=== PATIENT | female | born 1970 | race Caucasian/White ===

== ENCOUNTER → 2021-12-20 | Outpatient (CLI) | payer OTHER ==
[~2021-12-20] MED LIST: DULERA 100 MCG8.8 GM INH; IBUPROFEN600 MG PO; LORTAB 5-325 M1 EACH PO; NORCO 5-325 TA1 EACH PO; PREVACID15 MG PO; PROTONIX40 MG PO; ZOFRAN4 MG PO
== END ==
LOC: HEART 5 14:25
DX: J44.9 Chronic obstructive pulmonary disease, unspecified (principal)
CPT/HCPCS: 94010; 94729

== ENCOUNTER → 2022-01-04 | Outpatient (CLI) | payer OTHER | LOC: CT 15:30 → KOH-I 15:36 | DX: F17.210 Nicotine dependence, cigarettes, uncomplicated (principal); R06.00 Dyspnea, unspecified | CPT/HCPCS: 71271 ==